=== PATIENT | female | born 1970 | race Caucasian/White ===

== ENCOUNTER 2022-11-28 09:41 | Outpatient (OUT) | payer OTHER, SELFPAY ==
--- NOTE | 2022-11-28 09:55 | XR_ITS ---
The [address] [address] Patient Name: KAILEE HEIN MRN: [id number] date: 1970 Sex: F Assigned Patient Location: [facility] Current Patient Location: [facility] Accession/Order Number: [id number] Exam Date: 11/28/2022 09:55 Report Date: 11/28/2022 19:04 At the request of: NETTA RO Procedure: XR ankle LT min 3V PROCEDURE: XR ankle LT min 3V COMPARISON: None. HISTORY: LEFT ANKLE PAIN FINDINGS: BONES:No fracture, acute abnormality, or significant arthropathy. Minimal degenerative changes SOFT TISSUES:Moderate medial soft tissue swelling EFFUSION:None visible. OTHER: Negative. XR/XR ankle LT min 3V IMPRESSION: Medial soft tissue swelling, no acute fracture Electronically authenticated by: MARLEN PHAN Date: 11/28/2022 19:04
== END 2022-11-28 09:42 | disposition home or self-care (01) ==
LOC: RAD 09:42
PROVIDERS: PCP Family Medicine; Visit Provider Podiatrist Foot & Ankle Surgery
DX: M25.572 Pain in left ankle and joints of left foot (principal)
CPT/HCPCS: 73610

== ENCOUNTER 2023-01-03 09:46 | Outpatient (OUT) | payer OTHER, SELFPAY ==
--- NOTE | 2023-01-03 | XR_ITS ---
The [address] [address] Patient Name: KAILEE HEIN MRN: [id number] date: 1970 Sex: F Assigned Patient Location: [facility] Current Patient Location: [facility] Accession/Order Number: [id number] Exam Date: 01/03/2023 10:05 Report Date: 01/03/2023 13:41 At the request of: NETTA RO Procedure: XR foot LT min 3V PROCEDURE: XR foot LT min 3V DATE: 01/03/2023 9:05 AM CDT COMPARISONS: None CLINICAL INDICATION: LEFT FOOT PAIN FINDINGS: There is no evidence of fractures or other osseous abnormalities. XR/XR foot LT min 3V IMPRESSION: Left foot radiographs show no evidence of abnormalities. Electronically authenticated by: KEVIN BLACKBURN Date: 01/03/2023 13:41
== END 2023-01-03 09:47 | disposition home or self-care (01) ==
LOC: RAD 09:46
PROVIDERS: PCP Family Medicine; Visit Provider Podiatrist Foot & Ankle Surgery
DX: M25.572 Pain in left ankle and joints of left foot (principal)
CPT/HCPCS: 73630